=== PATIENT | male | born 1990 | race African-American/Black ===

== ENCOUNTER 2017-10-29 21:51 | Emergency (ER) | payer BC ==
[2017-10-29] MEDS ORDERED: hydrOXYzine HCl 50 MG/ML SDV IM ONE (22:33)
[2017-10-29] MEDS ORDERED: Ketorolac 60 MG/2 ML SDV IM ONE (22:33)
[2017-10-29] MEDS ORDERED: Doxycycline 100 MG Tab PO ONE (22:54)
[2017-10-29] MEDS ORDERED: traMADol 50 MG Tab PO ONE (22:54)
--- NOTE | 2017-10-30 01:19 | ER ---
DATE SEEN: 10/29/2017 TIME SEEN: 10:30 p.m. CHIEF COMPLAINT: Testicular pain. HISTORY OF PRESENT ILLNESS: This is a 27-year-old male complaining of testicular pain. This has been going on for at least a week and was seen recently. An ultrasound was done this morning to try and evaluate these symptoms. He also had a negative GC, chlamydia, CBC, and CMP. REVIEW OF SYSTEMS: He feels anxious, cannot breathe, and worried about cancer, or infertility. SOCIAL HISTORY: Smokes cigarettes. PAST MEDICAL HISTORY: Anxiety, bipolar illness, HIV infection. PHYSICAL EXAMINATION: GENERAL: Very anxious male, not in any cardiopulmonary distress. VITAL SIGNS: Blood pressure and temperature are normal. GENITALIA: Normal external genitalia. There is tenderness in the right epididymis. No penile discharge or rash. ABDOMEN: Soft and benign. MENTAL STATUS: Very anxious. CARDIOVASCULAR: Normal. IMPRESSION: 1. Epididymitis, viral. 2. Human immunodeficiency virus. 3. Anxiety. PLAN: Toradol 60 mg IM. Reassurance. Tramadol 50 mg t.i.d. p.r.n. for pain. Follow up in the office p.r.n. I did discuss with the family and nuclear reactor technician of the ultrasound, which was completely normal. /[id number] ZAINA/STANLEY
== END 2017-10-29 23:00 | disposition home or self-care (01) ==
LOC: FB.ED 21:51
DX: N45.1 Epididymitis (principal); B97.89 Other viral agents as the cause of diseases classified elsewhere; B20 Human immunodeficiency virus [HIV] disease; F41.9 Anxiety disorder, unspecified; F17.210 Nicotine dependence, cigarettes, uncomplicated; N50.811 Right testicular pain; R10.31 Right lower quadrant pain; R93.49 Abnormal radiologic findings on diagnostic imaging of other urinary organs
CPT/HCPCS: 76700; 76856; 76870; 96372; 99283; A9270; J1885; J3410

== ENCOUNTER 2018-02-05 07:40 | Emergency (ER) | payer BC ==
--- NOTE | 2018-02-05 09:50 | EDM.PDOC ---
ED HPI GENERAL MEDICAL PROBLEM - General Chief Complaint: Lower Extremity Injury/Pain Stated Complaint: bodyache Time Seen by Provider: 02/05/18 07:40 Source of Information: Reports: Patient History Limitations: Reports: No Limitations - History of Present Illness INITIAL COMMENTS - FREE TEXT/NARRATIVE: 27 y.o. muscular male came to the ed c/o r calf pain, gen bodyache, requesting a complete blood w/u, cardiac w/u etc. Pt denied N/V/D no dizziness, no other acute medical issues. BP 147/103 Pulse 77 RR 16 Pulse ox 100% Temp 36.6 Onset Date: 01/29/18 Onset Time: 09:00 Duration: Day(s):, Intermittent Location: Reports: Generalized Quality: Reports: Other (muscle aches, righ calf pain) Severity: Mild Improves with: Reports: Rest Worsens with: Reports: Movement Context: Reports: Other (works out daily) Associated Symptoms: Reports: No Other Symptoms - Related Data Allergies Allergy/AdvReac Type Severity Reaction Status Date / Time No Known Allergies Allergy Verified 02/05/18 08:06 Home Meds: Home Meds Elviteg/Gina/Emtric/Tenofo Ala [Genvoya Tablet] 1 tab PO DAILY 10/29/17 [History ] Past Medical History Psychiatric History: Reports: Anxiety Immunologic History: Reports: HIV Social & Family History - Family History Family Medical History: Unobtainable - Tobacco Use Smoking Status *Q: Current Every Day Smoker Years of Tobacco use: 7 Packs/Tins Daily: 1 - Caffeine Use Caffeine Use: Reports: Coffee, Energy Drinks, Tea - Recreational Drug Use Recreational Drug Use: No Review of Systems - Review of Systems Review Of Systems: See Below Constitutional: Reports: No Symptoms Eyes: Reports: No Symptoms Ears: Reports: No Symptoms Nose: Reports: No Symptoms Mouth/Throat: Reports: No Symptoms Respiratory: Reports: No Symptoms Cardiovascular: Reports: No Symptoms GI/Abdominal: Reports: No Symptoms Genitourinary: Reports: No Symptoms Musculoskeletal: Reports: Muscle Pain (more so at his right calf) Skin: Reports: No Symptoms Neurological: Reports: No Symptoms Psychiatric: Reports: No Symptoms ED EXAM, GENERAL - Physical Exam Exam: See Below Exam Limited By: No Limitations General Appearance: Alert, WD/WN, No Apparent Distress, Other (muscular, always on the phone) Eye Exam: Bilateral Eye: Normal Inspection Ears: Normal External Exam Ear Exam: Bilateral Ear: Auricle Normal Nose: Normal Inspection, Normal Mucosa Throat/Mouth: Normal Inspection, Normal Lips, Normal Teeth Head: Atraumatic, Normocephalic Neck: Normal Inspection, Supple, Non-Tender, Full Range of Motion Respiratory/Chest: No Respiratory Distress, Lungs Clear, Normal Breath Sounds, No Accessory Muscle Use, Chest Non-Tender Cardiovascular: Normal Peripheral Pulses, Regular Rate, Rhythm, No Edema, No Gallop, No JVD, No Murmur, No Rub Peripheral Pulses: 1+: Femoral (L) GI/Abdominal: Normal Bowel Sounds, Soft, Non-Tender, No Organomegaly, No Distention, No Abnormal Bruit, No Mass (Male) Exam: No Hernia Rectal (Males) Exam: Deferred Back Exam: Normal Inspection, Full Range of Motion Extremities: Normal Inspection, Normal Range of Motion, Non-Tender, No Pedal Edema, Normal Capillary Refill Neurological: Alert, Oriented, CN II-XII Intact, Normal Cognition, Normal Gait, No Motor/Sensory Deficits Psychiatric: Normal Affect, Normal Mood Skin Exam: Warm, Dry, Intact, Normal Color, No Rash Lymphatic: No Adenopathy Course - Vital Signs Text/Narrative:: 27 y.o. muscular male came to the ed c/o r calf pain, gen bodyache, requesting a complete blood w/u, cardiac w/u etc. Pt denied N/V/D no dizziness, no other acute medical issues. BP 147/103 Pulse 77 RR 16 Pulse ox 100% Temp 36.6 PE: WNWD Male, muscular C/O gen bodyache and right calf ache. Imaging: US doppler Right calf was neg. Impression: Muscle ache Tx: Pt refused Motrin Reexam: Pt was ambulating well here in the ed, was multiple time on the phone. BP on D/C was 125/88 pulse ox 100 RR 18 pulse 67 Plan: D/C with instructions Last Recorded V/S: Last Vital Signs Temp 36.7 C 02/05/18 07:40 Pulse 70 02/05/18 07:40 Resp 17 02/05/18 07:40 BP 147/103 H 02/05/18 07:40 Pulse Ox 100 02/05/18 07:40 - Orders/Labs/Meds Orders: Active Orders 24 hr Category Date Time Status VL Duplex Lwr Ext Veins Ltd Rt [US] Stat Exams 02/05/18 08:05 Taken Departure - Departure Time of Disposition: 09:50 Disposition: Home, Self-Care 01 Condition: Good Clinical Impression: Body aches - Discharge Information Referrals: Ryan Doyle MD [Primary Care Provider] - Forms: ED Department Discharge Additional Instructions: Please take Motrin for pain, please f/u with your PMD, please come back if your symptoms get worse acutely. - My Orders Last 24 Hours: My Active Orders 02/05/18 08:05 VL Duplex Lwr Ext Veins Ltd Rt [US] Stat - Assessment/Plan Last 24 Hours: My Active Orders 02/05/18 08:05 VL Duplex Lwr Ext Veins Ltd Rt [US] Stat
--- NOTE | 2018-02-05 11:13 | US ---
INDICATION: Right calf pain, question DVT. DUPLEX ULTRASOUND, RIGHT LOWER EXTREMITY VEINS: Utilizing 2-D real time, duplex Doppler spectral analysis and color flow imaging, examination of the right lower extremity veins revealed no evidence of deep venous thrombosis or obstruction. Compression views showed no abnormal lack of compression to suggest thrombosis. No evidence of incompetence of the valves was identified. IMPRESSION: Duplex ultrasound, right lower extremity veins, shows no evidence of deep venous thrombosis or incompetence. MTDD
== END 2018-02-05 10:21 | disposition home or self-care (01) ==
LOC: FB.ED 07:40
DX: M79.661 Pain in right lower leg (principal); M79.1 Myalgia; F17.210 Nicotine dependence, cigarettes, uncomplicated; Z79.899 Other long term (current) drug therapy
CPT/HCPCS: 93971-RT; 99283